=== PATIENT | male | born 1965 | race African-American/Black ===

== ENCOUNTER 2018-01-10 13:49 | Emergency (ER) | payer SELFPAY ==
[~2018-01-10] VITALS: Ht 185.4 cm; Wt 97.5 kg
[2018-01-10 14:16] VITALS: BP 144/97
[2018-01-10] MEDS ORDERED: metroNIDAZOLE 500 MG TABLET PO ONE (14:45)
[2018-01-10] MEDS ORDERED: cefTRIAXone IM 250 MG VIAL IM ONE (14:45)
[2018-01-10] MEDS ORDERED: AZITHROMYCIN 250 MG TABLET. PO ONE (14:45)
--- NOTE | 2018-01-10 14:57 | PHYS DOC ---
Past Medical History Past Medical History: No Pertinent History Past Surgical History: No Surgical History Alcohol Use: None Drug Use: None Adult General Chief Complaint Chief Complaint: SEXUALLY TRANSMITTED DISEASE HPI HPI Patient is a 52 year old male who presents today requesting STD treatment. Patient states he got exposed and is currently having dysuria and penile discharge. Patient denies any other complaints. Review of Systems Review of Systems Constitutional: Denies fever or chills [] GI: Denies abdominal pain, nausea, vomiting, bloody stools or diarrhea [] : Dysuria and concern for STDs, denies hematuria [] Musculoskeletal: Denies back pain or joint pain [] Integument: Denies rash or skin lesions [] Neurologic: Denies headache, focal weakness or sensory changes [] All other systems were reviewed and found to be within normal limits, except as documented in this note. Current Medications Current Medications Current Medications Medications (Trade) Dose Ordered Sig/Emile Start Time Stop Time Status Last Admin Dose Admin Azithromycin (Zithromax) 1,000 mg 1X ONCE 01/10/18 14:45 01/10/18 14:46 DC Ceftriaxone Sodium (Rocephin Im) 250 mg 1X ONCE 01/10/18 14:45 01/10/18 14:46 DC Metronidazole (Flagyl) 2,000 mg 1X ONCE 01/10/18 14:45 01/10/18 14:46 DC Allergies Allergies Allergies Coded Allergies Type Severity Reaction Last Updated Verified No Known Drug Allergies 01/10/18 No Physical Exam Physical Exam Constitutional: Well developed, well nourished, no acute distress, non-toxic appearance. [] Abdomen: Bowel sounds normal, soft, no tenderness, no masses, no pulsatile masses. [] Male exam deferred Skin: Warm, dry, no erythema, no rash. [] Back: No tenderness, no CVA tenderness. [] Extremities: No tenderness, no cyanosis, no clubbing, ROM intact, no edema. [] Neurologic: Alert and oriented X 3, normal motor function, normal sensory function, no focal deficits noted. [] Psychologic: Affect normal, judgement normal, mood normal. [] Current Patient Data Vital Signs Vital Signs Date Time Temp Pulse Resp B/P (MAP) Pulse Ox O2 Delivery O2 Flow Rate FiO2 01/10/18 14:16 98.2 73 18 144/97 (113) 99 Room Air 98.2 EKG EKG [] Radiology/Procedures Radiology/Procedures [] Course & Med Decision Making Course & Med Decision Making Pertinent Labs and Imaging studies reviewed. (See chart for details) This is a 52-year-old male patient presented to the ED today with STD concern. Patient was treated prophylaxis. STD education provided. Dragon Disclaimer Dragon Disclaimer This electronic medical record was generated, in whole or in part, using a voice recognition dictation system. Departure Departure Impression: Primary Impression: Concern about STD in male without diagnosis Disposition: 01 HOME, SELF-CARE Condition: STABLE Patient Instructions: Sexually Transmitted Disease Additional Instructions: You were treated for sexually transmitted diseases in the ED including chlamydia , gonorrhea and trichomonas. Your results will come back in 3 days. We will only call you if the results are positive. Do not have sex for 7 days. Use protection at all times. Contact all your sex partners, let them know you were treated for STDs and ask them to seek treatment too. KIN SHULTZ APRN Jan 10, 2018 14:57
[2018-01-10 15:05] LABS: BILIRUBIN,URINE NEGATIVE (NEG); CLARITY,URINE CLEAR; COLOR,URINE YELLOW; NITRITE,URINE NEGATIVE (NEG); PROTEIN,URINE NEGATIVE (NEG-TRACE); UROBILINOGEN,URINE 0.2 mg/dL (0.2 mg/dL)
[2018-01-10 15:11] LABS: BACTERIA,URINE 0 /HPF (0-FEW); RBC,URINE 0 /HPF (0-2); SQUAMOUS EPITHELIAL CELL,UR FEW /LPF; WBC,URINE 0 /HPF (0-4)
== END 2018-01-10 15:15 | disposition home or self-care (01) ==
LOC: ER 13:49
DX: Z20.2 Contact with and (suspected) exposure to infections with a predominantly sexual mode of transmission (principal); R30.0 Dysuria
CPT/HCPCS: 81001; 87491; 87591; 96372; 99284; J0696; Q0144